=== PATIENT | female | born 1995 | race African-American/Black ===

== ENCOUNTER → 2016-07-24 11:11 | Day surgery (SDC) | payer OTHER ==
[~2016-07-24 11:11] MED LIST: Buffered Lidocaine 1% SYRIN* 3 ML/SYR SYRINGE INTRADERM ONE; Bupivacaine 0.5% W/EPI SDV* 30 ML VIAL ONE; Dexamethasone IV* 4 MG/ML 1 ML (4 MG) IV SLOW PU ONE; Dexamethasone IV* 4 MG/ML 1 ML (4 MG) ONE; DiMENhydriNATE IV* 50 MG/ML VIAL IV PUSH PRN; EPINEPHrine AMP 1 MG/ML ONE; Famotidine IV* 10 MG/ML 2 ML (20 mg) IV ONE; Famotidine IV* 10 MG/ML 2 ML (20 mg) ONE; Glycopyrrolate IV* 0.2 MG/ML 1 ML VIAL ONE; Ketorolac INJ* 30 MG/ML 1 ML VIAL ONE; Lidocaine 2% PF* 5 ML VIAL ONE; Midazolam* 1 MG/ML 5 ML VIAL (5 MG) ONE; Ondansetron INJ* 2 MG/ML VIAL IV PRN; Ondansetron INJ* 2 MG/ML VIAL ONE; Propofol* 10 MG/ML 20 ML BTL IV PUSH ONE; Scopolamine 1.5 mg* PATCH TRANSDERM PRN; Scopolomine PATCH Remove* 1 NOTE MISC PATCH OFF ONE; ceFAZolin 2 GM PREMIX(*) 2 GM/50 ML BAG IVPB ONE; fentaNYL* 50 MCG/ML 2 ML VIAL (100 MCG VIAL) IV PRN; fentaNYL* 50 MCG/ML 5 ML VIAL (250 MCG VIAL) ONE; oxyCODONE/Acetamin 5/325 MG* TAB PO PRN
[2016-07-24 11:12] LABS: Manual Entry Verification HAN0055; UR Preg Internal Control QC Line Present
[2016-07-24 18:13] VITALS: BP 123/79
--- NOTE | 2016-07-25 00:11 | CONS ---
MEDICINE CONSULTATION: DATE OF CONSULT: 07/24/16 PROVIDER: Rio Davis NP CONSULTING PHYSICIAN: Jennifer Ruiz DO (dictated by Rio Davis NP) * PRIMARY CARE PHYSICIAN: [facility]. REQUESTING PHYSICIAN: Trever Moe MD REASON FOR CONSULTATION: Akathisic movements. HISTORY OF PRESENT ILLNESS: Ms. 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 The patient failed outpatient management and opted to have a partial meniscectomy surgery verus meniscal repair in order to better participate in her [employer] program. Prior to admission, the patient denies any recent illness or complaints. She denies any fever, chills, focal deficits, tingling, numbness, headaches, or dizziness. She denies any chest pain, shortness of breath, abdominal pain, nausea, vomiting , diarrhea, or dysuria. The patient underwent surgery and reportedly did well throughout the surgery and woke up fine; however, in the PACU, the patient was noted to have repetitive side- to-side movements with her neck that was concerning for akathisia. Hospital Medicine was consulted for potential admission and overnight observation. The patient was observed in the PACU and was noted to still have the repetitive movements. She did receive typical anesthetics including propofol, fentanyl, Versed as well as some Zofran and cefazolin. The patient has no known allergies and no previous history of anesthesia reactions. She receivd no medications that are typical for this type of reaction. The patient's father, who is a surgeon from [place], feels that she will most likely resolve with these symptoms in the PACU and would like her to come home with him. The patient also expressed that she would like to stay in the PACU and then be discharged to home. PAST MEDICAL HISTORY: Includes anemia, seasonal allergies. PAST SURGICAL HISTORY: Left ACL reconstruction with hamstring autograft in 2010. HOME MEDICATIONS: 1. Vitamin C 500 mg daily. 2. Naproxen 500 mg b.i.d. p.r.n. 3. Singulair 5 mg daily. 4. Iron 150 mg daily. 5. Flexeril 10 mg b.i.d. p.r.n. 6. Fluticasone nasal spray 1 spray to both nares daily. ALLERGIES: No known allergies. FAMILY HISTORY: Reviewed and noncontributory. SOCIAL HISTORY: The patient denies tobacco, alcohol, or recreational drug use. 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 She lives on [address]. Her mother and father are her surrogate decision makers with her mother, Evangelina Celis, being the primary. REVIEW OF SYSTEMS: A 12-point review of systems was completed. All pertinent positives and negatives are including the HPI, all those not mentioned are negative. PHYSICAL EXAMINATION: General: Ms. Celis is a 20-year-old well-developed, well- nourished female, who is lying in the PACU stretcher, in no acute distress. Repetitive movement of the neck is noted. Vital Signs: Temperature 96.8, heart rate 70, respiratory rate 18, blood pressure 143/93, and O2 saturation 100% on room air. HEENT: Head is atraumatic, normocephalic. Face is symmetrical. Pupils are equal, round, and reactive to light and accommodation. Sclerae anicteric. External ears and nose are normal. Oral mucosa appears moist. Neck is supple. No lymphadenopathy noted. Cardiac: S1 , S2 heart sounds. Regular rate and rhythm. No murmurs, rubs, or gallops. No peripheral edema. Distal pulses are 2+ bilaterally. Respiratory: Lungs are clear to auscultation. Abdomen: Soft, nontender, and nondistended. Bowel sounds present times all 4 quadrants. Musculoskeletal: There is a left knee immobilizer in place. The patient does have good distal movement of the left foot. Full range of motion in all other extremities. Skin: Limited examination appears grossly intact. There is a dressing to the left knee that is clean, dry, and intact, but no noted drainage. Neurological: No focal deficits. The patient is able to move all extremities and follows simple commands. The patient has repetitive movements noted to the neck and head with [id number] movements noted. Cranial nerves II through XII are grossly intact. Sensation is intact to light touch in the lower extremities. Psych: She is alert and oriented x3. Her affect is appropriate. IMPRESSION: Ms. Celis is a 20-year-old female who is in the postoperative period following a medial meniscus repair of the left knee. She is demonstrating some akathisic-type movements of the neck, but this is lessening as she begins to clear her medications from the surgery. This may be somewhat psychogenic in nature. During discussion, the patient becomes less focused on the movement and the movements are noticed to dissipate and become less in frequency. I did check on the patient 1 hour after the initial assessment, and there were no notable akathisic movements noted at rest, although they were reported to be present when the patient got out of bed. I did follow up the patient again 90 minutes after my initial assessment and no akathisic movements were noted at all. The patient is alert and oriented, responding appropriately and is more alert. Symptoms are most likely secondary to the anesthesia and that she has cleared the anesthesia, she is at her baseline neurological state, no akathisias noted at this time. The patient was observed getting out of bed and using crutches with no concerns. The patient was advised if symptoms return or if there are any further concerns that she should seek immediate medical attention. Otherwise, continue with previous discharge plan and instructions as given by orthopedic surgeon, Dr. Moe. TIME SPENT: Time spent on this consultation was approximately 90 minutes. This includes the initial assessment, discussion with family and the patient as well as repeat assessment. Thank you for this consultation. If you have any further questions, please feel free to contact me at [phone]. RIO DAVIS NP CC: [facility] * [id number]/[facility] #: [id number] ROLANDO
--- NOTE | 2016-07-26 07:59 | OP ---
DATE OF OPERATION: 07/24/16 - [facility] DATE OF : [birth year] SURGEON: Trever Moe MD LINE DIRECTOR: BRANNON Sarkar ANESTHESIOLOGIST: Keyshawn Hillman MD ANESTHESIA: General anesthesia and local anesthesia. PRE-OP DIAGNOSES: 1. Likely medial meniscus tear. 2. Status post anterior cruciate ligament reconstruction with hamstring autograft in 2010. POST-OP DIAGNOSES: 1. Left knee medial meniscus tear. 2. Status post anterior cruciate ligament reconstruction with hamstring autograft in 2010 with intact anterior cruciate ligament graft. OPERATIVE PROCEDURES: 1. Left knee evaluation under anesthesia. 2. Left knee medial meniscal repair. 3. Debridement of left knee cyclops lesion, arthrofibrotic lesion. 4. Left knee evaluation of anterior cruciate ligament reconstruction graft. ANTIBIOSIS: Ancef 2 g IV. IV FLUIDS: See anesthesia note. TOURNIQUET TIME: 90 minutes at 300 mmHg. SPECIMEN: None. IMPLANTS: FAST-FIX 360 meniscal repair devices x3. COMPLICATIONS: None. ESTIMATED BLOOD LOSS: None. INDICATIONS: The patient is a 20-year-old woman, a [employer] freshman , [facility] participant who presented to me in the early of 2015 complaining of posteromedial pain of the left knee and mechanical symptoms. The patient described multiple times each week of her left knee locking momentarily at approximately 60 degrees of flexion with resultant pain. This was disruptive to the patient's ADLs as well as to her working out with [facility]. The patient went back and forth changing her mind several times on operative versus nonoperative management. Nonoperative management was tried for a significant period of time with over 4 months of physical therapy, naproxen, even an intraarticular cortisone injection. The patient had no instability episodes. Exam showed a positive posterior medial joint line tenderness to palpation consistently throughout all her visits that reproduced the patient's pain. Negative Lucía's at most of her clinic visits. The patient had some mild laxity of her Sandra at the last clinic visit, but with a firm end point and I had no laxity that I had appreciated previously. Normal anterior drawer. The patient did have some persistent mild discomfort with pivot-shift testing in her clinic visits, but no pivot maneuver. MRI scan of the left knee had shown a signal change in two sagittal slices in the posterior horn of the medial meniscus consistent with a peripheral vertical tear communicating on the undersurface of the meniscus. The ACL graft appeared intact on MRI. The patient opted for surgical management. The patient told me that the surgeon who did her ACL reconstruction in 2010 had noted a medial meniscal tear, but that he felt that it was stable when he probed it and so it was neither debrided nor repaired with a meniscal fixation devices. DESCRIPTION OF PROCEDURE: Preoperative written consent. Operative extremity was marked in preoperative holding. Benefits, risks, and potential complications were reviewed with the patient. The patient was taken back to the operating room and placed supine on the operating room table. The patient was sedated and intubated. A proximal left thigh tourniquet was placed but not inflated. A circumferential thigh durand was placed about the distal left thigh. Before this was placed, the patient had evaluation under anesthesia of the left knee. Minimal laxity with Sandra. No laxity with anterior draw. No pivot-shift with pivot shift testing. Circumferential thigh durand was placed about the distal thigh. The left lower extremity was prepped and draped. A surgical time-out was performed. Esmarch was applied and the tourniquet elevated. An anterolateral knee arthroscopy portal was established using standard technique. Diagnostic arthroscopy was commenced. No damage to the patellofemoral compartment. I moved to the medial compartment. No articular cartilage damage was noted. The patient's meniscus looked normal at first glance. I then moved to the intercondylar notch. The ACL graft appeared in place. However, there was a large lesion of scar tissue hanging off the anterior aspect of the ACL graft and the PCL. This was not stuck down to the tibia as many cyclops lesions in my experience are, but this was a very large clearly nonstructural piece of scar tissue. I then moved to the lateral compartment and there was no pathology there. I made an anteromedial portal under direct visualization. I introduced an arthroscopic shaver and debrided the cyclops lesion with it. I confirmed with the arthroscopic probe and the shaver the integrity of ACL and PCL. I then moved to the medial compartment. I had made that anteromedial portal initially to do work in this medial compartment, so it is in the perfect position. I probed the medial meniscus. At first, my attention was spent on the root posteriorly of the medial meniscus. I debrided back some synovitis about the base of the PCL, avoiding injuring the PCL to better visualize the root. I visualized the root and probed it with an arthroscopic probe and was satisfied that there were no root injury; however, I then probed the posterior horn and posterior aspect of the body of the medial meniscus and sure enough there was a vertical peripheral tear. With probing, it displaced significantly. The patient seemed to have a rather short meniscus from peripheral to central. The tear seemed within 5 mm of the capsule; however, you know it also seemed about half of the way, 50% of the way from the peripheral edge to the central edge of the meniscus. Maybe this blunting is because of prior partial meniscectomy done at the time of the ACL when the patient was much younger; however, given the location of the tear close enough to the periphery, I decided to repair the tear. I used a bur to freshen up the edges of the meniscal tear. I then placed 3 FAST-FIX devices. I placed them from both the anteromedial and the anterolateral portals taking care to aim away from any neurovascular structures. Of note, two went in without any difficulty. I then placed a third and it misfired. I removed the second plastic anchor, but the first plastic anchor was successfully placed superficial to the capsule. I then placed a third FAST-FIX anchor successfully. I probed the meniscus and it was demonstrated to be very stable. I then exited the knee taking all instruments and fluid. The skin incisions were closed with [id number] stitches using nylon 4.0 suture. Xeroform, 4x4s, ABDs, sterile Webril, Lion bandage, and dropping of tourniquet. DISPOSITION: The patient awoke normally in the operating room and was then normally conversant in PACU. Then after a period of time, according to the anesthesia, perhaps 5 minutes, the patient developed some unusual movements, dyskinetic, of the neck and head moving [id number]. I was called over to see the patient and Dr. Hillman and I examined the patient. She could move all extremities. She could respond to commands. She had no facial asymmetry. She just had the dyskinetic neurologic-type movements of her neck and head. She said that she could not stop moving. We called the hospitalist consult and the hospitalist neurologist stop by to see her. They were comfortable with the observation. Her blood glucose was normal. The patient and her father wanted her to go home and she cleared entirely of those symptoms within an hour of this discharge. The patient will see a physical therapist this coming week, will see me in 10 to 14 days postoperatively, and will be on Percocet, Keflex, and aspirin postoperatively. [id number]/[facility] #: [id number] MTDBartolo
== END | disposition home or self-care (01) ==
LOC: OR 11:11
PROVIDERS: ATTEND Orthopaedic Surgery
DX: M23.232 Derangement of other medial meniscus due to old tear or injury, left knee (principal); M25.862 Other specified joint disorders, left knee; G25.71 Drug induced akathisia
CPT/HCPCS: 81025; J0171; J0690; J1100; J1885; J2250; J2405; J2704; J3010